=== PATIENT | female | born 1980 | race Caucasian/White ===

== ENCOUNTER 2017-08-04 00:02 | Emergency (ER) | payer OTHER | END 2017-08-04 02:28 | disposition other institution (70) | LOC: ED 00:02 | DX: Z02.89 Encounter for other administrative examinations (principal) ==

== ENCOUNTER 2017-08-04 00:02 | Emergency (ER) | payer MEDICARE, OTHER ==
[~2017-08-04] VITALS: Ht 171.5 cm; Wt 77.1 kg
[2017-08-04 00:07] VITALS: Ht 171.5 cm; Wt 77.1 kg
[2017-08-04 02:28] VITALS: BP 123/70
== END 2017-08-04 02:28 | disposition other institution (70) ==
LOC: ED 00:02
DX: S91.312A Laceration without foreign body, left foot, initial encounter (principal); J45.909 Unspecified asthma, uncomplicated; F31.9 Bipolar disorder, unspecified; X58.XXXA Exposure to other specified factors, initial encounter; Y93.89 Activity, other specified; Y92.89 Other specified places as the place of occurrence of the external cause; Y99.8 Other external cause status
CPT/HCPCS: 90715; Q0092

== ENCOUNTER 2019-02-22 04:59 | Emergency (ER) | payer OTHER ==
[~2019-02-22] VITALS: Ht 170.2 cm; Wt 85.4 kg
[2019-02-22 05:18] VITALS: Ht 170.2 cm; Wt 85.4 kg
[2019-02-22 07:03] VITALS: BP 148/72
== END 2019-02-22 07:03 | disposition home or self-care (01) ==
LOC: ED 04:59
DX: S90.821A Blister (nonthermal), right foot, initial encounter (principal); S60.511A Abrasion of right hand, initial encounter; N39.0 Urinary tract infection, site not specified; J45.909 Unspecified asthma, uncomplicated; F31.9 Bipolar disorder, unspecified; Z59.0 Homelessness; Z91.030 Bee allergy status; X58.XXXA Exposure to other specified factors, initial encounter; Y93.89 Activity, other specified; Y92.89 Other specified places as the place of occurrence of the external cause; Y99.8 Other external cause status
CPT/HCPCS: 87491; 87591; Q0092

== ENCOUNTER 2019-03-23 09:13 | Emergency (ER) | payer OTHER ==
[~2019-03-23] VITALS: Ht 170.2 cm; Wt 77.1 kg
[2019-03-23 09:24] VITALS: Ht 170.2 cm; Wt 77.1 kg
[2019-03-23 10:15] LABS: UA SPECIFIC GRAVITY 1.015 (1.005-1.035); microscopic required? YES; urine erythrocyte TRACE (NEGATIVE)
[2019-03-23 12:02] VITALS: BP 129/77
== END 2019-03-23 12:02 | disposition home or self-care (01) ==
LOC: ED 09:13
PROVIDERS: Emergency Medicine
DX: A64 Unspecified sexually transmitted disease (principal); F17.210 Nicotine dependence, cigarettes, uncomplicated; J45.909 Unspecified asthma, uncomplicated; Z91.030 Bee allergy status; Z88.8 Allergy status to other drugs, medicaments and biological substances
CPT/HCPCS: 87491; 87591; J0696

== ENCOUNTER 2019-05-21 13:25 | Emergency (ER) | payer OTHER | END 2019-05-21 15:28 | disposition other institution (70) | LOC: ED 13:25 | DX: Z02.89 Encounter for other administrative examinations (principal) ==

== ENCOUNTER 2019-05-21 13:25 | Emergency (ER) | payer OTHER ==
[~2019-05-21] VITALS: Ht 167.6 cm; Wt 77.1 kg
[2019-05-21 13:47] VITALS: Ht 167.6 cm; Wt 77.1 kg
[2019-05-21 15:28] VITALS: BP 123/74
== END 2019-05-21 15:28 | disposition other institution (70) ==
LOC: ED 13:25
DX: S06.0X0A Concussion without loss of consciousness, initial encounter (principal); J45.909 Unspecified asthma, uncomplicated; F17.210 Nicotine dependence, cigarettes, uncomplicated; Z88.8 Allergy status to other drugs, medicaments and biological substances; Z91.030 Bee allergy status; W18.09XA Striking against other object with subsequent fall, initial encounter; Y93.E1 Activity, personal bathing and showering; Y92.091 Bathroom in other non-institutional residence as the place of occurrence of the external cause; Y99.8 Other external cause status